=== PATIENT | male | born 1990 | race Caucasian/White ===

== ENCOUNTER 2019-09-06 09:09 | Emergency (ER) | payer MEDICARE, MEDICAID ==
[~2019-09-06] VITALS: Ht 190.5 cm; Wt 81.8 kg
[~2019-09-06 09:09] MED LIST: ONDA4TAB6 PO
[2019-09-06] MEDS ORDERED: ibuprofen tablet 400 MG TABLET PO ONE (09:25)
[2019-09-06 09:50] VITALS: BP 109/51
== END 2019-09-06 10:13 | disposition home or self-care (01) ==
LOC: ER 09:09
DX: M25.572 Pain in left ankle and joints of left foot (principal); Z98.61 Coronary angioplasty status; Z98.890 Other specified postprocedural states; Z79.899 Other long term (current) drug therapy
CPT/HCPCS: 73610; 73630; 99284

== ENCOUNTER 2019-10-08 11:37 | Emergency (ER) | payer MEDICARE, MEDICAID ==
[~2019-10-08] VITALS: Ht 190.5 cm; Wt 79.0 kg
[2019-10-08 11:44] VITALS: BP 129/70
== END 2019-10-08 12:48 | disposition home or self-care (01) ==
LOC: ER 11:37
DX: S52.612A Displaced fracture of left ulna styloid process, initial encounter for closed fracture (principal); Z98.61 Coronary angioplasty status; Z98.890 Other specified postprocedural states; Z79.899 Other long term (current) drug therapy; W18.30XA Fall on same level, unspecified, initial encounter; Y93.89 Activity, other specified; Y92.89 Other specified places as the place of occurrence of the external cause; Y99.8 Other external cause status
CPT/HCPCS: 29125; 73110; 99283

== ENCOUNTER 2021-06-22 19:24 | Emergency (ER) | payer MEDICARE, MEDICAID ==
[~2021-06-22] VITALS: Ht 182.9 cm; Wt 87.6 kg
--- NOTE | 2021-06-22 21:28 | NUR ---
PATIENT SEEN AND TREATED BY MD IN TRIAGE. PATIENT DECLINES ANY PAIN MED'S. DISCH TO HOME WITH FLU INST. NO DISTRESS.
[2021-06-22 21:29] VITALS: BP 121/64
== END 2021-06-22 21:32 | disposition home or self-care (01) ==
LOC: ER 19:24
DX: S50.02XA Contusion of left elbow, initial encounter (principal); Z98.890 Other specified postprocedural states; Z79.899 Other long term (current) drug therapy; W19.XXXA Unspecified fall, initial encounter; Y93.89 Activity, other specified; Y92.89 Other specified places as the place of occurrence of the external cause; Y99.8 Other external cause status
CPT/HCPCS: 73080; 99283